=== PATIENT | female | born 1955 ===

== ENCOUNTER 2025-01-09 02:44 | Outpatient (CLI) | payer MEDICARE, BC, SELFPAY ==
--- NOTE | 2025-01-09 08:00 | DI.US_ITS ---
Exam(s) US THYROID EXAM: US THYROID CLINICAL HISTORY: Assess for any concerning nodules,nontoxic multinodular goiter,e04.2. TECHNIQUE: Ultrasound thyroid performed using standard protocol. COMPARISON: No exams were available for comparison FINDINGS: ISTHMUS: 3.1 mm. There is a mixed cystic and solid isoechoic mass in the isthmus measuring 2.4 x 1.5 x 3.2 cm. Punctate echogenic foci are seen. It is consistent with a TI rads 4 level nodule. Due t o its size, FNA is recommended. RIGHT LOBE: Size: 5.2 x 1.1 x 1.3 cm Echogenicity: Normal. Vascularity: Normal. Nodules: There is a solid hypoechoic nodule which appears to have extrathyroidal extension arising fr om the superior lateral aspect of the right lobe. It measures 1.9 x 1.0 x 0.9 cm. It does appear ta ller than wide. It is consistent with a TI rads level 5 nodule. Due to its size, FNA is recommended . Reportedly, the patient has had prior biopsy of this nodule. LEFT LOBE: Size: 4.0 x 1.9 x 1.4 cm Echogenicity: Normal. Vascularity: Normal. Nodules: There are multiple nodule seen in the left lobe of the thyroid gland. There is a 1.9 x 1.3 x 1.9 cm solid isoechoic nodule in the midpole. It is taller than wide. It is consistent with a TI rads level 4 nodule. Due to its size, FNA is recommended. OTHER FINDINGS: None. IMPRESSION: Multinodular thyroid gland. Biopsy is recommended on several thyroid nodules as described above. Th e patient has a history of prior thyroid nodule biopsies. Please correlate with prior biopsy results . DATA REPOSITORY:
== END 2025-01-09 03:04 ==
LOC: DI 02:45
PROVIDERS: PCP Family Medicine; Visit Provider Otolaryngology
DX: E04.2 Nontoxic multinodular goiter (principal)
CPT/HCPCS: 76536

== ENCOUNTER 2025-01-31 01:13 | Outpatient (CLI) | payer MEDICARE, BC, SELFPAY ==
--- NOTE | 2025-01-31 12:00 | DI.US_ITS ---
Exam(s) US NEEDLE LOCAL OTHER WO RAD EXAM: Left thyroid and isthmus nodules meeting criteria,goiter,e04.2 COMPARISON: No exams were available for comparison TECHNIQUE: Ultrasound performed using standard protocol. FINDINGS: Sonography was provided for Dr. Mcghee during the performance of a thyroid nodule biopsy. Please re jaime to the procedure report for complete details. DATA REPOSITORY:
--- NOTE | 2025-01-31 12:15 | PAPNONF_PTH ---
PATIENT: Tangela Muhammad LOC: [facility] U#:[id number] AGE/SX: 69/F ROOM: RE01/31/[address]: Tom Mcghee MD : [id number] BED: DIS: 01/31/2025 SPEC #: [id number] RECD: 01/31/25 13:05 STATUS: JEOVANNY RE #: [id number] HOWIE: 01/31/25 12:[address]: Tom Mcghee DEPT: [facility] Cytology RECD BY: Laisha Payton ENTERED: 01/31/25 13:06 SP TYPE: MICHAEL BOND DR: Elyse Mendoza Tissues: 1 - BODY FLUID CYTO-FINE NEEDLE ASPIRATE-[facility] Procedures: BODY FLUID CYTO-FINE NEEDLE ASPIRATE-[facility] Comments: [id number] (PATH FNA CONSULT) (REFRIGERATED)
--- NOTE | 2025-01-31 13:04 | OPPNE_ITS ---
Date of service: 01/31/25 Time of Service: 13:04 Procedure Note Date of procedure: 01/31/25 Procedure: Ultrasound-guided FNA, left thyroid nodule Surgeon/Proceduralist/Physician: Tom Mcghee Procedure Diagnosis: Thyroid nodule meeting criteria for biopsy Procedure Indications: I reviewed the findings with the patient. She has elected not to have the right thyroid nodule biopsied as it has only grown by a couple of millimeters in several years. She would like to proceed with biopsy of the isthmus nodule as well as the left midpole thyroid nodule as recommended by previous ultrasound. Consent was filled out and signed prior to the procedure. Risks and benefits were reviewed. Procedure Description: After obtaining written consent, the patient was positioned in the supine position with her neck slightly extended. Ultrasound was used to examine the thyroid nodules of concern. The isthmus nodule consisted mostly of thin-walled cyst with cystic contents, and thin septa. After discussion with the patient, the decision was made not to biopsy this nodule as I did not feel there was adequate solid material to ensure that we obtained a door to door sales representative section. She is aware that we will continue to follow this. Attention was then turned to the left thyroid nodule. The patient was prepped and draped in appropriate fashion. Ultrasound was used to localize the thyroid nodule and then 1% lidocaine with 1/100,000 epinephrine injected in the skin and subcutaneous tissues overlying the medial aspect of the nodule. A 25-gauge needle was then passed into the thyroid nodule, and used to obtain a sample. 2 passes were necessary to his cellular adequacy. Once cellular adequacy was verified by pathology, 2 additional passes were made for potential Afirma testing. After ensuring adequate hemostasis, a sterile dressing was applied and the patient was allowed to sit, stand, and ambulate. She tolerated the procedure well. Her vital signs remained stable. She will remove the bandage in a couple of hours and not replace it. She will avoid any strenuous activities today and use ibuprofen or Tylenol for any discomfort. She will call if she does not hear from me within 1 week with regard to pathology results. She had no further questions. She is comfortable with the plan.
== END 2025-01-31 01:33 ==
LOC: DI 01:13
PROVIDERS: PCP Family Medicine; Visit Provider Otolaryngology
DX: E04.2 Nontoxic multinodular goiter (principal)
CPT/HCPCS: 10005; 76942; 88104